=== PATIENT | female | born 1950 | race Caucasian/White ===

== ENCOUNTER 2022-04-04 13:06 | Outpatient (RCR) | payer MEDICARE, SELFPAY ==
[2022-04-04] MEDS: HEPARIN 500 UNIT/5 ML SYRINGE IVF (13:50)
[2022-04-04] MEDS: SODIUM CHLORIDE 0.9 % (FLUSH) 10 ML SYRINGE IVF (13:50)
== END 2022-04-09 23:59 | disposition home or self-care (01) ==
LOC: CCIC 13:06
PROVIDERS: PCP Family Medicine; Visit Provider Clinical Nurse Specialist
DX: Z45.2 Encounter for adjustment and management of vascular access device (principal)
CPT/HCPCS: 99211; J1642

== ENCOUNTER 2022-10-31 08:30 | Outpatient (RCR) | payer MEDICARE, SELFPAY ==
[2022-05-16] MEDS: HEPARIN 500 UNIT/5 ML SYRINGE IVF (09:21)
[2022-05-16] MEDS: SODIUM CHLORIDE 0.9 % (FLUSH) 10 ML SYRINGE IVF (09:21)
[2022-06-27] MEDS: SODIUM CHLORIDE 0.9 % (FLUSH) 10 ML SYRINGE IVF (07:52)
[2022-06-27] MEDS: HEPARIN 500 UNIT/5 ML SYRINGE IVF (07:52)
[2022-08-08] MEDS: SODIUM CHLORIDE 0.9 % (FLUSH) 10 ML SYRINGE IVF (07:56)
[2022-08-08] MEDS: HEPARIN 500 UNIT/5 ML SYRINGE IVF (07:56)
[2022-09-19] MEDS: HEPARIN 500 UNIT/5 ML SYRINGE IVF (08:46)
[2022-09-19] MEDS: SODIUM CHLORIDE 0.9 % (FLUSH) 10 ML SYRINGE IVF (08:46)
== END 2022-11-12 23:59 | disposition home or self-care (01) ==
LOC: CCIC 08:30
PROVIDERS: PCP Family Medicine; Referring Provider Family Medicine; Visit Provider Clinical Nurse Specialist
DX: Z45.2 Encounter for adjustment and management of vascular access device (principal)
CPT/HCPCS: 99211; J1642

== ENCOUNTER 2022-11-28 09:35 | Outpatient (CLI) | payer MEDICARE, SELFPAY ==
--- NOTE | 2022-11-28 10:15 | CRLHL7_ITS ---
For Patients: As a result of the Century Cures Act, medical imaging exams and procedure reports are released immediately into your electronic medical record. You may view this report before your referring provider. If you have questions, please contact your health care provider. BILATERAL SCREENING MAMMOGRAM WITH COMPUTER-AIDED DETECTION AND TOMOSYNTHESIS TECHNIQUE: CC and MLO views were obtained. These mammographic images have been obtained using full-field digital technique. These mammographic images were interpreted with the benefit of computer-aided detection. Breast tomosynthesis was used in this interpretation. COMPARISON FILM: 09/20/21, 09/07/20, 06/13/19. FINDINGS: The breasts are heterogeneously dense, which may obscure small masses. IMPRESSION: There is no radiographic evidence for malignancy. ASSESSMENT: BI-RADS Category 1: Negative RECOMMENDATION: Routine screening mammogram in 1 year. A lay language report of this examination will be provided to the patient. ABRAHAM REYNOLDS M.D. Diagnostic Radiologist [email or web address] Transcribed: 11/28/2022, 1:[address]/Dictated by: Abraham Reynolds MD @ 11/28/2022 12:00:00 PM (Electronically Signed)
== END 2022-11-28 09:36 | disposition home or self-care (01) ==
LOC: MAMMO 09:37
PROVIDERS: PCP Family Medicine; Visit Provider Family Medicine
DX: Z12.31 Encounter for screening mammogram for malignant neoplasm of breast (principal); R92.2 Inconclusive mammogram
CPT/HCPCS: 77063; 77067

== ENCOUNTER 2023-05-29 14:15 | Outpatient (RCR) | payer MEDICARE, SELFPAY ==
[2022-12-12] MEDS: SODIUM CHLORIDE 0.9 % (FLUSH) 10 ML SYRINGE IVF (08:21)
[2022-12-12] MEDS: HEPARIN 500 UNIT/5 ML SYRINGE IVF (08:21)
[2023-03-06] MEDS: SODIUM CHLORIDE 0.9 % (FLUSH) 10 ML SYRINGE IVF (08:19)
[2023-03-06] MEDS: HEPARIN 500 UNIT/5 ML SYRINGE IVF (08:19)
--- NOTE | 2023-04-17 12:33 | ONC.NURNOTE ---
Patient did not show for port flush. Left message to reschedule.
[2023-05-29] MEDS: SODIUM CHLORIDE 0.9 % (FLUSH) 10 ML SYRINGE IVF (14:45)
[2023-05-29] MEDS: HEPARIN 500 UNIT/5 ML SYRINGE IVF (14:45)
== END 2023-06-10 23:59 | disposition home or self-care (01) ==
LOC: CCIC 14:15
PROVIDERS: PCP Family Medicine; Referring Provider Family Medicine; Visit Provider Clinical Nurse Specialist
DX: Z45.2 Encounter for adjustment and management of vascular access device (principal)
CPT/HCPCS: 99211; J1642

== ENCOUNTER 2023-10-26 14:30 | Outpatient (RCR) | payer MEDICARE, SELFPAY ==
[2023-07-13] MEDS: HEPARIN 500 UNIT/5 ML SYRINGE IVF (09:54)
[2023-07-13] MEDS: SODIUM CHLORIDE 0.9 % (FLUSH) 10 ML SYRINGE IVF (09:54)
[2023-08-31] MEDS: SODIUM CHLORIDE 0.9 % (FLUSH) 10 ML SYRINGE IVF (10:51)
[2023-08-31] MEDS: HEPARIN 500 UNIT/5 ML SYRINGE IVF (10:51)
== END 2024-01-09 23:59 | disposition home or self-care (01) ==
LOC: CCIC 14:30
PROVIDERS: PCP Internal Medicine; Referring Provider Internal Medicine; Visit Provider Clinical Nurse Specialist
DX: Z45.2 Encounter for adjustment and management of vascular access device (principal)
CPT/HCPCS: 99211; J1642